=== PATIENT | female | born 2005 | race African-American/Black ===

== ENCOUNTER 2025-02-05 13:49 | Emergency (ER) | payer MEDICAID ==
[~2025-02-05] VITALS: Ht 165.1 cm; Wt 91.0 kg
[2025-02-05 13:56] VITALS: O2SAT 98
[2025-02-05] MEDS ORDERED: DIPH25TA26 MT (14:27)
[2025-02-05] MEDS ORDERED: IBUP-2028 MT (14:27)
[2025-02-05] MEDS ORDERED: IBUPROFEN 400MG TABLET PO ONE (14:30)
[2025-02-05] MEDS ORDERED: DIPHENHYDRAMINE 25MG CAPSULE PO ONE (14:30)
[2025-02-05 14:57] VITALS: BP 120/64; PULSE 90; RESP 16; TEMP 36.9; O2SAT 99
== END 2025-02-05 15:04 | disposition home or self-care (01) ==
LOC: ER 13:49
DX: R21 Rash and other nonspecific skin eruption (principal); E11.9 Type 2 diabetes mellitus without complications; J45.909 Unspecified asthma, uncomplicated
CPT/HCPCS: 99283